=== PATIENT | male | born 1995 | race Caucasian/White ===

== ENCOUNTER 2018-06-22 23:30 | Emergency (ER) | payer BC ==
[~2018-06-22] VITALS: Ht 175.3 cm; Wt 62.6 kg
[2018-06-22 23:44] VITALS: BP_SYST 141
--- NOTE | 2018-06-23 04:00 | NUR ---
Patient left without being seen. No further treatment provided. ER MD aware
== END 2018-06-23 04:00 | disposition left against medical advice (07) ==
LOC: SED 23:30
DX: J45.901 Unspecified asthma with (acute) exacerbation (principal); Z53.21 Procedure and treatment not carried out due to patient leaving prior to being seen by health care provider